=== PATIENT | female | born 1960 | race Two or more races ===

== ENCOUNTER 2023-02-06 10:18 | Observation (INO) | payer BC, OTHER ==
[~2023-02-06] VITALS: Ht 154.9 cm; Wt 44.2 kg
[2023-02-06] MEDS ORDERED: SODIUM CHLORIDE 0.9% 1,000 ML IVB ONE (10:30)
[2023-02-06] MEDS ORDERED: PANTOPRAZOLE 40 MG/10 ML VIAL INJ IV ONE (10:30)
[2023-02-06] MEDS ORDERED: PROCHLORPERAZINE EDISYLATE 5 MG/ML 2ML VIAL IV ONE (10:30)
[2023-02-06] MEDS ORDERED: MORPHINE SULFATE 4 MG/ML SYR/VIAL IV ONE (10:30)
[2023-02-06] MEDS ORDERED: IOHEXOL 300 MG/ML 100ML BOTTLE IJ ONE (10:42)
[2023-02-06 11:30] LABS: Basophils # (auto) 0 10 ^3/uL (0-0.2); Basophils % (auto) 0.3 % (0.0-2.0); Eosinophils # (auto) 0 10 ^3/uL (0-0.8); Eosinophils % (auto) 0.2 % (0.0-7.0); Hematocrit 41.1 % (36.0-46.0); Hemoglobin 13.6 g/dL (12.2-16.2); Lymphocytes # (auto) 1.5 10 ^3/uL (0.4-5.4); Lymphocytes % (auto) 11.2 % (10.0-50.0); Mean Corpuscular Hemoglobin 28.6 pg (28.0-32.0); Mean Corpuscular Volume 86.5 fL (80.0-100.0); Monocytes # (auto) 0.7 10 ^3/uL (0-1.3); Monocytes % (auto) 5.5 % (0.0-12.0); Neutrophils # (auto) 11.1 10 ^3/uL (1.6-8.6); Neutrophils % (auto) 82.8 % (37.0-80.0); Red Blood Cells 4.75 10^6/uL (4.0-5.20); Red Cell Distribution Width 13.9 % (11.8-14.3); White Blood Cell 13.4 10^3/uL (4.4-10.8)
[2023-02-06 11:38] LABS: Albumin 3.7 g/dL (3.4-5.0); BUN/Creatinine Ratio 22.5 (10.0-20.0); Bilirubin, Total 0.8 mg/dL (0.2-1.0); Calcium 9.2 mg/dL (8.5-10.1); Potassium 3.7 mmol/L (3.5-5.1); Total Protein 7.4 g/dL (6.4-8.2)
[2023-02-06 13:22] LABS: Urine Bacteria NONE SEEN /hpf (None Seen); Urine Mucus FEW (None Seen); Urine WBC <1 /hpf (0 - 5)
[2023-02-06 14:05] LABS: Urine Blood Negative /uL (Negative); Urine Clarity Clear (Clear); Urine Color Yellow (Yellow); Urine Protein, UAD Negative (Negative); Urine Specific Gravity 1.039 (1.001-1.035); Urine Urobilinogen Normal (Negative); Urine pH 6.5 (5.0-8.0)
[2023-02-06] MEDS ORDERED: KETOROLAC TROMETH 30 MG/ML 1ML VIAL IV ONE (17:00)
[2023-02-06] MEDS ORDERED: MULTIPLE VITAMIN TAB PO ONE (17:00)
[2023-02-06] MEDS ORDERED: SODIUM CHLORIDE 0.9% 1,000 ML IV SCH (17:00)
[2023-02-06] MEDS ORDERED: FOLIC ACID 1 MG TAB PO ONE (17:00)
[2023-02-06] MEDS ORDERED: ONDANSETRON HCL 4 MG/2 ML VIAL IV PRN ×2 (17:00→18:00)
[2023-02-06] MEDS ORDERED: metroNIDAZOLE 500MG/100ML 100 ML IV ONE (17:00)
[2023-02-06] MEDS ORDERED: SODIUM CHLORIDE 0.9% 1,000 ML IV ONE (18:00)
[2023-02-06] MEDS ORDERED: levoFLOXacin 500MG 100 ML IV SCH (18:00)
[2023-02-06] MEDS ORDERED: methylPREDNISolone SOD SUCC 40 MG/ML VL IV SCH (18:00)
[2023-02-06] MEDS ORDERED: MORPHINE SULFATE INJ 2 MG/ml SYRG IV PRN (18:00)
[2023-02-06 18:32] LABS: Erythrocyte Sedimentation Rate 9 mm/hr (0-20)
[2023-02-06] MEDS ORDERED: metroNIDAZOLE 500MG/100ML 100 ML IV SCH (22:00)
[2023-02-07] VITALS (8 sets, daily range): BP systolic 88–114; BP diastolic 57–78; PULSE 64–80; RESP 16–18; TEMP 36.9; O2SAT 96–100
[2023-02-07] MEDS: metroNIDAZOLE 500MG/100ML 100 ML IV SCH ×2 (01:06→09:00)
[2023-02-07] MEDS ORDERED: FOLIC ACID 1 MG TAB PO SCH (10:00)
[2023-02-07] MEDS ORDERED: PANTOPRAZOLE 40 MG/10 ML VIAL INJ IV SCH (10:00)
[2023-02-07] MEDS ORDERED: MULTIPLE VITAMIN TAB PO SCH (10:00)
[2023-02-07] MEDS ORDERED: ENOXAPARIN SOD 40 MG/0.4 ML SYRINGE SC SCH (10:00)
[2023-02-07] MEDS ORDERED: LEVO500T91 PO (10:28)
[2023-02-07] MEDS ORDERED: DOCU-94 PO (10:28)
[2023-02-07] MEDS ORDERED: METR-344 PO (10:28)
[2023-02-07] MEDS ORDERED: DOCUSATE SOD 100 MG CAP PO SCH (10:30)
[2023-02-07] MEDS ORDERED: metroNIDAZOLE 500MG/100ML 100 ML IV SCH (14:00)
== END 2023-02-07 19:00 | disposition home or self-care (01) ==
LOC: ER 10:18 → EDBD 10:18 → OVERFLOW 17:00 → UNDOADMIN 17:00 → CENTRAL 17:58 → OVERFLOW 23:51 → CENTRAL 02-07 19:00
PROVIDERS: ADMIT Internal Medicine; ATTEND Internal Medicine
DX: K52.9 Noninfective gastroenteritis and colitis, unspecified (principal); K50.10 Crohn's disease of large intestine without complications; D25.9 Leiomyoma of uterus, unspecified; K76.89 Other specified diseases of liver; K50.90 Crohn's disease, unspecified, without complications; F12.988 Cannabis use, unspecified with other cannabis-induced disorder; Z79.899 Other long term (current) drug therapy; Z98.890 Other specified postprocedural states; Z87.891 Personal history of nicotine dependence
CPT/HCPCS: 36415; 71045; 74177; 80053; 81001; 83690; 84484; 85025; 85652; 86141; 87040; 93005; 96361; 96365; 96366; 96367; 96375; 99285; C9113; G0378; J0780; J1885; J1956; J2270; J3490; Q9967

== ENCOUNTER 2023-03-07 16:24 | Emergency (ER) | payer BC ==
[~2023-03-07] VITALS: Ht 154.9 cm; Wt 43.3 kg
[~2023-03-07 16:24] MED LIST: DOCU-94 PO; LEVO500T91 PO; METR-344 PO
[2023-03-07 19:30] VITALS: BP 119/77; PULSE 88; RESP 16; TEMP 98.4; O2SAT 99
[2023-03-07] MEDS ORDERED: APIX5TAB PO (22:39)
== END 2023-03-07 22:48 | disposition home or self-care (01) ==
LOC: ER 16:24
DX: I82.622 Acute embolism and thrombosis of deep veins of left upper extremity (principal); F12.90 Cannabis use, unspecified, uncomplicated; Z79.899 Other long term (current) drug therapy
CPT/HCPCS: 93971